=== PATIENT | male | born 1940 | race Caucasian/White ===

== ENCOUNTER 2021-07-07 21:32 | Inpatient (IN) | payer OTHER ==
[~2021-07-07] VITALS: Ht 177.8 cm; Wt 83.8 kg
[2021-07-07] MEDS ORDERED: NITROGLYCERIN 0.4 MG SL TAB SL ONE (22:00)
[2021-07-07 22:47] LABS: Basophils # (auto) 0.1 10 ^3/uL (0-0.2); Basophils % (auto) 0.6 % (0.0-2.0); Eosinophils # (auto) 0.6 10 ^3/uL (0-0.8); Eosinophils % (auto) 5.5 % (0.0-7.0); Hematocrit 49.7 % (41.0-53.0); Hemoglobin 16.5 g/dL (13.5-17.5); Lymphocytes % (auto) 18.5 % (10.0-50.0); Mean Corpuscular Hemoglobin 30.7 pg (28.0-32.0); Mean Corpuscular Hgb Conc. 33.1 g/dL (32.0-36.0); Mean Corpuscular Volume 92.9 fL (80.0-100.0); Monocytes # (auto) 0.7 10 ^3/uL (0-1.3); Neutrophils # (auto) 7.3 10 ^3/uL (1.6-8.6); Neutrophils % (auto) 68.4 % (37.0-80.0); Nucleated Red Blood Cells % 0.1 %; Red Blood Cells 5.36 10^6/uL (4.5-5.90); Red Cell Distribution Width 13.7 % (11.8-14.3); White Blood Cell 10.7 10^3/uL (4.4-10.8)
[2021-07-07 23:06] LABS: Albumin 4.1 g/dL (3.4-5.0); Calcium 10.2 mg/dL (8.5-10.1); Potassium 4.7 mmol/L (3.5-5.1)
[2021-07-07 23:12] LABS: BUN/Creatinine Ratio 12.4; Bilirubin, Total 0.5 mg/dL (0.2-1.0); Total Protein 8.5 g/dL (6.4-8.2)
[2021-07-08] MEDS ORDERED: LABETALOL HCL 5 MG/ML 4ML SYRINGE IV ONE (02:15)
[2021-07-08] MEDS ORDERED: ACETAMINOPHEN 325 MG TAB PO PRN (05:45)
[2021-07-08] MEDS ORDERED: NITROGLYCERIN 0.4 MG SL TAB SL PRN (05:45)
[2021-07-08] MEDS ORDERED: ENOXAPARIN SOD 100 MG/1 ML SYRINGE SC ONE (05:45)
[2021-07-08] MEDS ORDERED: ONDANSETRON HCL 4 MG/2 ML VIAL IV PRN (05:45)
[2021-07-08] MEDS ORDERED: MORPHINE SULFATE INJECTION 2 MG/ML SYRG IV PRN (05:45)
[2021-07-08] MEDS ORDERED: TEMAZEPAM 15 MG CAP PO PRN (05:45)
[2021-07-08] MEDS ORDERED: DEXTROSE (50%) 50ML SYRG IV PRN (05:45)
[2021-07-08] MEDS: ACCU-CHEK COMFORT CURVE STRIP VI SCH ×3 (06:27→18:00)
[2021-07-08] MEDS: InsuLIN REG 1unit/0.01ml Soln (100units/ml) SC SCH ×3 (06:36→18:00)
[2021-07-08 10:00] VITALS: BP 143/85
[2021-07-08] MEDS ORDERED: LISINOPRIL 5 MG TAB PO SCH (10:00)
[2021-07-08] MEDS ORDERED: ISOSORBIDE MONONITRATE ER 60 MG TAB PO SCH (10:00)
[2021-07-08] MEDS ORDERED: ENOXAPARIN SOD 40 MG/0.4 ML SYRINGE SC SCH (10:00)
[2021-07-08 10:55] VITALS: BP 140/86
[2021-07-08] MEDS: ASPirin 81 mg TAB PO SCH (12:53)
[2021-07-08] MEDS: PRASUGREL HCL 10 MG TAB PO SCH (12:54)
[2021-07-08] MEDS: PANTOPRAZOLE 40 MG TAB PO SCH (12:55)
[2021-07-08 12:58] LABS: Cholesterol 231 mg/dL (< 200); HDL Cholesterol 46 mg/dL (40-59); LDL Cholesterol 176 mg/dL (< 100); Triglycerides 115 mg/dL (< 150)
[2021-07-08 13:00] VITALS: BP 151/94
[2021-07-08 16:39] VITALS: BP 122/74
[2021-07-08] MEDS: ATORVASTATIN 20 MG TAB PO SCH (21:31)
[2021-07-08 22:00] VITALS: BP 99/60
[2021-07-08] MEDS ORDERED: ATORVASTATIN 20 MG TAB PO SCH (22:00)
[2021-07-09] MEDS: ACCU-CHEK COMFORT CURVE STRIP VI SCH ×5 (00:45→23:21)
[2021-07-09] MEDS: InsuLIN REG 1unit/0.01ml Soln (100units/ml) SC SCH ×5 (00:49→23:48)
[2021-07-09 05:00] VITALS: BP 123/72
[2021-07-09 08:21] LABS: Basophils # (auto) 0.1 10 ^3/uL (0-0.2); Basophils % (auto) 0.7 % (0.0-2.0); Eosinophils # (auto) 0.6 10 ^3/uL (0-0.8); Eosinophils % (auto) 5.6 % (0.0-7.0); Hematocrit 49.5 % (41.0-53.0); Hemoglobin 16.8 g/dL (13.5-17.5); Lymphocytes # (auto) 2.5 10 ^3/uL (0.4-5.4); Lymphocytes % (auto) 24.4 % (10.0-50.0); Mean Corpuscular Hemoglobin 31.3 pg (28.0-32.0); Mean Corpuscular Hgb Conc. 33.9 g/dL (32.0-36.0); Mean Corpuscular Volume 92.3 fL (80.0-100.0); Monocytes # (auto) 1.3 10 ^3/uL (0-1.3); Monocytes % (auto) 12.1 % (0.0-12.0); Neutrophils # (auto) 5.9 10 ^3/uL (1.6-8.6); Neutrophils % (auto) 57.2 % (37.0-80.0); Nucleated Red Blood Cells % 0.1 %; Red Blood Cells 5.36 10^6/uL (4.5-5.90); Red Cell Distribution Width 13.5 % (11.8-14.3); White Blood Cell 10.4 10^3/uL (4.4-10.8)
[2021-07-09 08:33] LABS: Albumin 3.4 g/dL (3.4-5.0); BUN/Creatinine Ratio 10.2; Calcium 9.7 mg/dL (8.5-10.1); Potassium 4.2 mmol/L (3.5-5.1)
[2021-07-09 08:36] LABS: Bilirubin, Total 0.9 mg/dL (0.2-1.0); Total Protein 7.8 g/dL (6.4-8.2)
[2021-07-09 09:00] VITALS: BP 124/68
[2021-07-09] MEDS ORDERED: FUROSEMIDE 20 MG/2 ML VIAL IV ONE (09:30)
[2021-07-09] MEDS: ASPirin 81 mg TAB PO SCH (09:41)
[2021-07-09] MEDS: PANTOPRAZOLE 40 MG TAB PO SCH (09:41)
[2021-07-09] MEDS: PRASUGREL HCL 10 MG TAB PO SCH (09:41)
[2021-07-09] MEDS ORDERED: CLOPIDOGREL 300 MG TAB PO ONE (10:00)
[2021-07-09] MEDS: CARVEDILOL 12.5 MG TAB PO SCH ×2 (10:30→21:58)
[2021-07-09] MEDS: NITROGLYCERIN 0.4MG/HR TOPICAL PATCH TD SCH (10:30)
[2021-07-09] MEDS: LISINOPRIL 10 MG TAB PO SCH (10:30)
[2021-07-09] MEDS: ENOXAPARIN SOD 100 MG/1 ML SYRINGE SC SCH ×2 (10:30→21:58)
[2021-07-09 12:57] VITALS: BP 140/83
[2021-07-09] MEDS: DAPAGLIFLOZIN 5 MG TAB PO SCH (14:46)
[2021-07-09 17:00] VITALS: BP 110/71
[2021-07-09] MEDS: FUROSEMIDE 20 MG/2 ML VIAL IV SCH (17:57)
[2021-07-09] MEDS: ATORVASTATIN 20 MG TAB PO SCH (21:58)
[2021-07-09 22:00] VITALS: BP 117/72
[2021-07-10 05:00] VITALS: BP 99/65
[2021-07-10] MEDS: ACCU-CHEK COMFORT CURVE STRIP VI SCH ×3 (05:52→17:40)
[2021-07-10] MEDS: InsuLIN REG 1unit/0.01ml Soln (100units/ml) SC SCH ×3 (06:02→17:42)
[2021-07-10] MEDS: FUROSEMIDE 20 MG/2 ML VIAL IV SCH ×2 (06:56→17:41)
[2021-07-10 09:00] VITALS: BP 104/76
[2021-07-10] MEDS: ASPirin 81 mg TAB PO SCH (10:30)
[2021-07-10] MEDS: CARVEDILOL 12.5 MG TAB PO SCH ×2 (10:33→21:47)
[2021-07-10] MEDS: DAPAGLIFLOZIN 5 MG TAB PO SCH (10:33)
[2021-07-10] MEDS: NITROGLYCERIN 0.4MG/HR TOPICAL PATCH TD SCH (10:34)
[2021-07-10] MEDS: ENOXAPARIN SOD 100 MG/1 ML SYRINGE SC SCH ×2 (10:34→21:47)
[2021-07-10] MEDS: PRASUGREL HCL 10 MG TAB PO SCH (10:34)
[2021-07-10] MEDS: PANTOPRAZOLE 40 MG TAB PO SCH (10:34)
[2021-07-10] MEDS: LISINOPRIL 10 MG TAB PO SCH (12:22)
[2021-07-10 13:35] VITALS: BP 111/67
[2021-07-10] MEDS: ATORVASTATIN 20 MG TAB PO SCH (21:47)
[2021-07-10 22:07] VITALS: BP 98/69
[2021-07-11] VITALS (10 sets, daily range): BP systolic 97–147; BP diastolic 58–84
[2021-07-11] MEDS: ACCU-CHEK COMFORT CURVE STRIP VI SCH ×4 (00:40→18:20)
[2021-07-11] MEDS: InsuLIN REG 1unit/0.01ml Soln (100units/ml) SC SCH ×4 (00:47→18:23)
[2021-07-11] MEDS: FUROSEMIDE 20 MG/2 ML VIAL IV SCH (06:00)
[2021-07-11 06:07] LABS: Basophils # (auto) 0.1 10 ^3/uL (0-0.2); Basophils % (auto) 1.1 % (0.0-2.0); Eosinophils # (auto) 0.7 10 ^3/uL (0-0.8); Eosinophils % (auto) 7.8 % (0.0-7.0); Hematocrit 46.9 % (41.0-53.0); Hemoglobin 15.7 g/dL (13.5-17.5); Lymphocytes # (auto) 2.5 10 ^3/uL (0.4-5.4); Lymphocytes % (auto) 29.5 % (10.0-50.0); Mean Corpuscular Hgb Conc. 33.4 g/dL (32.0-36.0); Mean Corpuscular Volume 92.6 fL (80.0-100.0); Monocytes # (auto) 1.2 10 ^3/uL (0-1.3); Monocytes % (auto) 13.5 % (0.0-12.0); Neutrophils # (auto) 4.1 10 ^3/uL (1.6-8.6); Neutrophils % (auto) 48.1 % (37.0-80.0); Red Blood Cells 5.07 10^6/uL (4.5-5.90); Red Cell Distribution Width 13.8 % (11.8-14.3); White Blood Cell 8.6 10^3/uL (4.4-10.8)
[2021-07-11 06:19] LABS: INR 1.09 (0.9-1.15); Partial Thromboplastin Time 36.5 sec (23.6-33.0)
[2021-07-11 06:20] LABS: Potassium 4.5 mmol/L (3.5-5.1)
[2021-07-11 06:24] LABS: Albumin 3.1 g/dL (3.4-5.0); BUN/Creatinine Ratio 15.4; Calcium 9.6 mg/dL (8.5-10.1)
[2021-07-11 06:27] LABS: Bilirubin, Total 0.6 mg/dL (0.2-1.0); Total Protein 7.2 g/dL (6.4-8.2)
[2021-07-11] MEDS ORDERED: SODIUM CHLORIDE 0.9% 250 ML IV ONE (09:15)
[2021-07-11] MEDS: ENOXAPARIN SOD 100 MG/1 ML SYRINGE SC SCH (10:00)
[2021-07-11] MEDS: CARVEDILOL 12.5 MG TAB PO SCH ×2 (10:00→22:25)
[2021-07-11] MEDS ORDERED: ANGIOMAX 250 MG VIAL IV ONE (10:49)
[2021-07-11] MEDS ORDERED: MIDAZOLAM HCL 2MG/2ML 2ml VIAL (1mg/ml) ONE (10:49)
[2021-07-11] MEDS ORDERED: fentaNYL CITRATE 100 MCG/2 ML VL ONE (10:49)
[2021-07-11] MEDS ORDERED: HEPARIN SODIUM (PORCINE) 5000 UNITS/ML 1ML VIAL ONE (10:49)
[2021-07-11] MEDS ORDERED: VERAPAMIL 2.5MG/ML INJ 2ML VIAL IV ONE (10:49)
[2021-07-11] MEDS ORDERED: SODIUM CHL 0.9% 50 ML ONE (10:50)
[2021-07-11] MEDS ORDERED: LIDOCAINE 2%HCL (LOCAL ANESTH.) INJ 20ML MDV ONE (11:04)
[2021-07-11] MEDS ORDERED: IODIXANOL 320MG/ML 100ML BTL IV ONE ×2 (11:43→11:44)
[2021-07-11] MEDS ORDERED: ASPirin 81 mg TAB ONE (12:14)
[2021-07-11] MEDS ORDERED: PRASUGREL HCL 10 MG TAB ONE (12:15)
[2021-07-11] MEDS: PRASUGREL HCL 10 MG TAB PO SCH (12:16)
[2021-07-11] MEDS: ASPirin 81 mg TAB PO SCH (12:17)
[2021-07-11 14:35] LABS: Albumin 3.1 g/dL (3.4-5.0); BUN/Creatinine Ratio 17.2; Calcium 9.5 mg/dL (8.5-10.1); Phosphorus 4.5 mg/dL (2.5-4.90)
[2021-07-11] MEDS: PANTOPRAZOLE 40 MG TAB PO SCH (18:00)
[2021-07-11] MEDS: NITROGLYCERIN 0.4MG/HR TOPICAL PATCH TD SCH (18:00)
[2021-07-11] MEDS: DAPAGLIFLOZIN 5 MG TAB PO SCH (18:00)
[2021-07-11] MEDS ORDERED: ACETYLCYSTEINE ORAL for CIN 20%(200MG/ML) 4ML PO ONE (22:00)
[2021-07-11] MEDS: ATORVASTATIN 20 MG TAB PO SCH (22:24)
[2021-07-11] MEDS: SACUBITRIL-VALSARTAN 24mg/26mg TAB PO SCH (22:24)
[2021-07-12 05:00] VITALS: BP 92/62
[2021-07-12] MEDS: ACCU-CHEK COMFORT CURVE STRIP VI SCH ×4 (06:14→17:42)
[2021-07-12] MEDS: InsuLIN REG 1unit/0.01ml Soln (100units/ml) SC SCH ×4 (06:14→17:42)
[2021-07-12 06:32] LABS: Potassium 5.5 mmol/L (3.5-5.1)
[2021-07-12 06:38] LABS: Albumin 2.9 g/dL (3.4-5.0); BUN/Creatinine Ratio 20.6; Calcium 9.3 mg/dL (8.5-10.1)
[2021-07-12 06:41] LABS: Bilirubin, Total 0.7 mg/dL (0.2-1.0); Total Protein 7.3 g/dL (6.4-8.2)
[2021-07-12 09:27] VITALS: BP 105/60
[2021-07-12] MEDS ORDERED: SODIUM CHLORIDE 0.9% 500 ML IV ONE (10:00)
[2021-07-12] MEDS: PANTOPRAZOLE 40 MG TAB PO SCH (10:08)
[2021-07-12] MEDS: ASPirin 81 mg TAB PO SCH (10:08)
[2021-07-12] MEDS: PRASUGREL HCL 10 MG TAB PO SCH (10:08)
[2021-07-12] MEDS: CARVEDILOL 12.5 MG TAB PO SCH ×2 (10:09→21:57)
[2021-07-12] MEDS: NITROGLYCERIN 0.4MG/HR TOPICAL PATCH TD SCH (10:10)
[2021-07-12] MEDS: SACUBITRIL-VALSARTAN 24mg/26mg TAB PO SCH (10:22)
[2021-07-12 13:00] VITALS: BP_SYST 102; BP_SYST 138; BP_DIAS 47; BP_DIAS 81
[2021-07-12] MEDS: DAPAGLIFLOZIN 5 MG TAB PO SCH (13:17)
[2021-07-12] MEDS ORDERED: SODIUM ZIRCONIUM CYCL 10 GM PAK PO ONE (14:45)
[2021-07-12] MEDS ORDERED: SODIUM CHLORIDE 0.9% 1,000 ML IV ONE (14:45)
[2021-07-12 17:00] VITALS: BP 101/62
[2021-07-12 20:00] VITALS: BP 140/65
[2021-07-12] MEDS: ATORVASTATIN 20 MG TAB PO SCH (21:58)
[2021-07-12 22:00] VITALS: BP 140/65
[2021-07-13 05:00] VITALS: BP 121/71
[2021-07-13 05:56] LABS: Urine Bacteria FEW /hpf (None Seen); Urine Blood Negative /uL (Negative); Urine Specific Gravity 1.027 (1.001-1.035); Urine WBC 1 /hpf (0 - 3)
[2021-07-13 06:16] LABS: Protein, Urine 18.8 mg/dL (0.0-11.9)
[2021-07-13 06:19] LABS: BUN/Creatinine Ratio 25.7; Calcium 9.2 mg/dL (8.5-10.1); Potassium 4.3 mmol/L (3.5-5.1)
[2021-07-13] MEDS: ACCU-CHEK COMFORT CURVE STRIP VI SCH ×3 (06:20→12:28)
[2021-07-13] MEDS: InsuLIN REG 1unit/0.01ml Soln (100units/ml) SC SCH ×3 (06:21→12:28)
[2021-07-13 08:00] VITALS: BP 108/70
[2021-07-13 09:00] VITALS: BP 108/70
[2021-07-13] MEDS: ASPirin 81 mg TAB PO SCH (09:42)
[2021-07-13] MEDS: CARVEDILOL 12.5 MG TAB PO SCH (09:42)
[2021-07-13] MEDS: PANTOPRAZOLE 40 MG TAB PO SCH (09:43)
[2021-07-13] MEDS: PRASUGREL HCL 10 MG TAB PO SCH (09:43)
[2021-07-13] MEDS: DAPAGLIFLOZIN 5 MG TAB PO SCH (09:43)
[2021-07-13] MEDS: NITROGLYCERIN 0.4MG/HR TOPICAL PATCH TD SCH (09:44)
[2021-07-13 13:00] VITALS: BP 131/57
[2021-07-13 15:30] VITALS: BP 131/57
== END 2021-07-13 16:35 | disposition home or self-care (01) | DRG 246 ==
LOC: ER 21:32 → EDBD 21:32 → EDUNIT# 21:32 → TELE 07-08 05:43 → TELE-WESTW 07-08 10:17
PROVIDERS: ADMIT Nurse Practitioner; ATTEND Internal Medicine
PROC: 027034Z Dilation of Coronary Artery, One Artery with Drug-eluting Intraluminal Device, Percutaneous Approach (ICD-10-PCS; principal; 2021-07-11)
PROC: 4A023N7 Measurement of Cardiac Sampling and Pressure, Left Heart, Percutaneous Approach (ICD-10-PCS; 2021-07-11)
PROC: B211YZZ Fluoroscopy of Multiple Coronary Arteries using Other Contrast (ICD-10-PCS; 2021-07-11)
PROC: B215YZZ Fluoroscopy of Left Heart using Other Contrast (ICD-10-PCS; 2021-07-11)
PROC: B218YZZ Fluoroscopy of Left Internal Mammary Bypass Graft using Other Contrast (ICD-10-PCS; 2021-07-11)
PROC: B213YZZ Fluoroscopy of Multiple Coronary Artery Bypass Grafts using Other Contrast (ICD-10-PCS; 2021-07-11)
DX: T82.855A Stenosis of coronary artery stent, initial encounter (principal); I21.4 Non-ST elevation (NSTEMI) myocardial infarction; I50.23 Acute on chronic systolic (congestive) heart failure; J96.10 Chronic respiratory failure, unspecified whether with hypoxia or hypercapnia; N17.9 Acute kidney failure, unspecified; I25.110 Atherosclerotic heart disease of native coronary artery with unstable angina pectoris; E11.9 Type 2 diabetes mellitus without complications; E78.5 Hyperlipidemia, unspecified; E87.5 Hyperkalemia; I11.0 Hypertensive heart disease with heart failure; J44.9 Chronic obstructive pulmonary disease, unspecified; N14.1 Nephropathy induced by other drugs, medicaments and biological substances; Z20.822 Contact with and (suspected) exposure to COVID-19; Z98.61 Coronary angioplasty status; T50.8X5A Adverse effect of diagnostic agents, initial encounter; Y83.1 Surgical operation with implant of artificial internal device as the cause of abnormal reaction of the patient, or of later complication, without mention of misadventure at the time of the procedure; Z95.1 Presence of aortocoronary bypass graft; I25.2 Old myocardial infarction; Y92.89 Other specified places as the place of occurrence of the external cause; Z87.891 Personal history of nicotine dependence; Z88.1 Allergy status to other antibiotic agents
CPT/HCPCS: 36415; 71045; 80048; 80053; 80061; 80069; 81001; 82306; 82570; 82962; 83036; 83735; 83880; 84156; 84300; 84443; 84484; 85025; 85379; 85610; 85730; 86850; 86900; 86901; 87426; 92928; 93005; 93306; 93459; 96372; 96374; 97163; 99152; 99153; C1887; G0378; J1815; J2250; J2405; J3490; Q9967